=== PATIENT | female | born 1965 | race Caucasian/White ===

== ENCOUNTER 2022-12-05 11:10 | Day surgery (SDC) | payer OTHER ==
[2022-12-03 11:46] VITALS: BMI 27.3
[2022-12-05 12:52] VITALS: TEMP 98
[2022-12-05 13:00] VITALS: BP 98/68; PULSE 72; RESP 19
== END 2022-12-05 13:05 | disposition home or self-care (01) ==
LOC: FASU-ENDO 11:10
PROVIDERS: ATTEND Internal Medicine Gastroenterology
PROC: 0DJD8ZZ Inspection of Lower Intestinal Tract, Via Natural or Artificial Opening Endoscopic (ICD-10-PCS; principal; 2022-12-05 12:10)
DX: Z12.11 Encounter for screening for malignant neoplasm of colon (principal); K64.1 Second degree hemorrhoids; Z80.0 Family history of malignant neoplasm of digestive organs